=== PATIENT | male | born 2000 | race Caucasian/White ===

== ENCOUNTER 2023-04-23 16:17 | Emergency (ER) | payer OTHER ==
[2023-04-23 16:51] VITALS: BP 117/51; PULSE 70; RESP 16; TEMP 98.1; BMI 23.6
[2023-04-23] MEDS ORDERED: IBUPROFEN 600 MG TABLET (FP) PO ONE ×2 (16:58→17:02)
== END 2023-04-23 17:22 | disposition home or self-care (01) ==
LOC: FER 16:17
DX: S16.1XXA Strain of muscle, fascia and tendon at neck level, initial encounter (principal); M54.2 Cervicalgia; V49.40XA Driver injured in collision with unspecified motor vehicles in traffic accident, initial encounter; Y93.I9 Activity, other involving external motion
CPT/HCPCS: 99283-25